=== PATIENT | male | born 1980 | race African-American/Black ===

== ENCOUNTER 2018-09-18 00:20 | Inpatient (IN) | payer MEDICAID ==
[~2018-09-18] VITALS: Ht 180.3 cm; Wt 93.9 kg
[2018-09-18] VITALS (7 sets, daily range): BP systolic 139–166; BP diastolic 81–107
[2018-09-18] MEDS ORDERED: SODIUM CHLORIDE 0.9% 1,000 ML IV ONE (01:15)
[2018-09-18 01:24] LABS: Basophils # (auto) 0.1 uL; Basophils % (auto) 1.2 % (0.0-2.0); Eosinophils # (auto) 0 uL; Eosinophils % (auto) 0.3 % (0.0-7.0); Hemoglobin 16.8 g/dL (13.5-17.5); Lymphocytes # (auto) 5.8 uL; Lymphocytes % (auto) 53.3 % (10.0-50.0); Mean Corpuscular Hemoglobin 31.3 pg (28.0-32.0); Mean Corpuscular Hgb Conc. 34.3 g/dL (32.0-36.0); Mean Corpuscular Volume 91.2 fL (80.0-100.0); Monocytes # (auto) 0.7 uL; Monocytes % (auto) 6.1 % (0.0-12.0); Neutrophils # (auto) 4.3 uL; Neutrophils % (auto) 39.1 % (37.0-80.0); Nucleated Red Blood Cells % 0.3 %; Platelet Count (auto) 303 10^3/uL (140-450); Red Blood Cells 5.37 10^6/uL (4.5-5.90); Red Cell Distribution Width 13.4 % (11.8-14.3); White Blood Cell 10.9 10^3/uL (4.4-10.8)
[2018-09-18 02:00] LABS: Alanine Aminotransferase 34 U/L (16-61); Albumin 3.9 g/dL (3.4-5.0); Anion Gap 18 (5-15); Aspartate Aminotransferase 32 U/L (15-37); BUN/Creatinine Ratio 9.4; Blood Urea Nitrogen 13 mg/dL (7-18); Calcium 8.7 mg/dL (8.5-10.1); Carbon Dioxide 20 mmol/L (21-32); Chloride 95 mmol/L (98-107); GFR African American 74 mL/min; GFR Non-African American 61 mL/min; Glucose 151 mg/dL (74-106); Magnesium 1.5 mg/dL (1.6-2.6); Sodium 133 mmol/L (136-145)
[2018-09-18 02:02] LABS: Potassium 2.8 mmol/L (3.5-5.1)
[2018-09-18 02:03] LABS: Alkaline Phosphatase 74 U/L (45-117); Bilirubin, Total 0.6 mg/dL (0.2-1.0); Total Protein 7.6 g/dL (6.4-8.2)
[2018-09-18] MEDS ORDERED: POTASSIUM EFFERVESENT TAB 25 MEQ PO ONE (02:15)
[2018-09-18 03:32] LABS: Urine Bacteria NONE SEEN /hpf (None Seen); Urine Blood Negative /uL (Negative); Urine Specific Gravity 1.007 (1.001-1.035); Urine WBC 2 /hpf (0 - 3)
[2018-09-18 03:50] LABS: Alcohol, Urine < 3.0 mg/dL (0-5); Amphetamine Screen, Urine NEGATIVE (NEGATIVE); Barbiturate Scree,Urine NEGATIVE (NEGATIVE); Benzodiazephine Screen, Urine NEGATIVE (NEGATIVE); Cannabinoid Screen, Urine NEGATIVE (NEGATIVE); Cocaine Screen, Urine NEGATIVE (NEGATIVE); Opiate Scree,Urine NEGATIVE (NEGATIVE); Phencyclidine Screen, Urine NEGATIVE (NEGATIVE)
[2018-09-18] MEDS ORDERED: MORPHINE SULFATE 4 MG/ML SYR/VIAL IV PRN (04:45)
[2018-09-18] MEDS ORDERED: TEMAZEPAM 15 MG CAP PO PRN (04:45)
[2018-09-18] MEDS ORDERED: SODIUM CHLORIDE 0.9% 500 ML IV ONE (04:45)
[2018-09-18] MEDS ORDERED: DEXTROSE (50%) 50ML SYRG IV PRN (04:45)
[2018-09-18] MEDS ORDERED: ACETAMINOPHEN 325 MG TAB PO PRN (04:45)
[2018-09-18] MEDS ORDERED: NITROGLYCERIN 0.4 MG SL TAB SL PRN (04:45)
[2018-09-18] MEDS ORDERED: ONDANSETRON HCL 4 MG/2 ML VIAL IV PRN (04:45)
[2018-09-18] MEDS ORDERED: ALBUTEROL SULF 2.5 MG/0.5ML(0.5%) NEB SOLN NEB PRN (06:15)
[2018-09-18] MEDS ORDERED: INSLISPI SC (07:18)
[2018-09-18] MEDS ORDERED: INSLANTI SC (07:19)
[2018-09-18] MEDS ORDERED: ATOR20TA50 PO (07:19)
[2018-09-18] MEDS ORDERED: ENAL2.5T PO (07:19)
[2018-09-18 07:39] LABS: Albumin 3.2 g/dL (3.4-5.0); Calcium 7.8 mg/dL (8.5-10.1); Potassium 4.2 mmol/L (3.5-5.1)
[2018-09-18 07:44] LABS: BUN/Creatinine Ratio 9.6; Bilirubin, Total 0.7 mg/dL (0.2-1.0); Total Protein 6.3 g/dL (6.4-8.2)
[2018-09-18] MEDS: ACCU-CHEK COMFORT CURVE STRIP VI SCH ×4 (08:30→22:00)
[2018-09-18] MEDS: InsuLIN REG 1unit/0.01ml Soln (100units/ml) SC SCH ×4 (08:30→23:12)
[2018-09-18] MEDS: FAMOTIDINE 20 MG TAB PO SCH ×2 (09:59→21:46)
[2018-09-18] MEDS: SODIUM CHLORIDE 0.9% 1,000 ML IV SCH ×2 (10:39→14:58)
[2018-09-18] MEDS ORDERED: ENALAPRIL MALEATE 10 MG TAB PO ONE (17:45)
[2018-09-18] MEDS: ENALAPRILAT 1.25 MG/ML-1ML VIAL IV PRN (17:45)
[2018-09-18] MEDS ORDERED: INSULIN LANTUS (GLARGINE) 1 /0.01ml (100units/ml) SC SCH (22:00)
[2018-09-19] MEDS: SODIUM CHLORIDE 0.9% 1,000 ML IV SCH ×2 (00:45→10:45)
[2018-09-19 05:00] VITALS: BP 160/102
[2018-09-19] MEDS: ACCU-CHEK COMFORT CURVE STRIP VI SCH ×2 (06:36→11:30)
[2018-09-19] MEDS: ENALAPRILAT 1.25 MG/ML-1ML VIAL IV PRN (06:38)
[2018-09-19] MEDS: InsuLIN REG 1unit/0.01ml Soln (100units/ml) SC SCH (06:38)
[2018-09-19 07:14] LABS: Basophils # (auto) 0 uL; Basophils % (auto) 0.4 % (0.0-2.0); Eosinophils # (auto) 0 uL; Eosinophils % (auto) 0.4 % (0.0-7.0); Hematocrit 45.8 % (41.0-53.0); Hemoglobin 15.5 g/dL (13.5-17.5); Lymphocytes # (auto) 2.7 uL; Lymphocytes % (auto) 43.1 % (10.0-50.0); Mean Corpuscular Hemoglobin 31.6 pg (28.0-32.0); Mean Corpuscular Hgb Conc. 33.8 g/dL (32.0-36.0); Mean Corpuscular Volume 93.4 fL (80.0-100.0); Monocytes # (auto) 0.5 uL; Monocytes % (auto) 8.3 % (0.0-12.0); Neutrophils % (auto) 47.8 % (37.0-80.0); Nucleated Red Blood Cells % 0.1 %; Platelet Count (auto) 251 10^3/uL (140-450); Red Blood Cells 4.91 10^6/uL (4.5-5.90); Red Cell Distribution Width 13.6 % (11.8-14.3); White Blood Cell 6.2 10^3/uL (4.4-10.8)
[2018-09-19 07:26] LABS: Albumin 3.3 g/dL (3.4-5.0); BUN/Creatinine Ratio 9.6; Calcium 7.9 mg/dL (8.5-10.1); Potassium 3.3 mmol/L (3.5-5.1)
[2018-09-19 07:29] LABS: Bilirubin, Total 0.8 mg/dL (0.2-1.0); Total Protein 6.8 g/dL (6.4-8.2)
[2018-09-19] MEDS: HYDROcodone-ACET 5/325MG TAB PO PRN ×2 (08:10→13:42)
[2018-09-19] MEDS: FAMOTIDINE 20 MG TAB PO SCH (08:28)
[2018-09-19 08:55] VITALS: BP 142/101
[2018-09-19] MEDS ORDERED: ENALAPRIL MALEATE 10 MG TAB PO SCH (10:00)
[2018-09-19 12:21] VITALS: BP 148/101
[2018-09-19] MEDS ORDERED: DEXTROSE (50%) 50ML SYRG IV PRN (13:15)
[2018-09-19] MEDS ORDERED: INSULIN LANTUS (GLARGINE) 1 /0.01ml (100units/ml) SC ONE (13:15)
[2018-09-19] MEDS ORDERED: amLODIPine BESYLATE 5 MG TAB PO ONE (13:15)
[2018-09-19] MEDS ORDERED: AMLO5TAB13 PO (13:34)
[2018-09-19] MEDS ORDERED: POTASSIUM CHL 20 Meq TABLET PO ONE (13:45)
[2018-09-19] MEDS ORDERED: ACCU-CHEK COMFORT CURVE STRIP VI SCH (17:00)
[2018-09-19] MEDS ORDERED: InsuLIN REG 1unit/0.01ml Soln (100units/ml) SC SCH ×2 (17:00→22:00)
== END 2018-09-19 17:47 | disposition home or self-care (01) | DRG 420 ==
LOC: ER 00:20 → TELE 00:21 → TELE-EAST 05:52
PROVIDERS: ADMIT Nurse Practitioner; ATTEND Internal Medicine Pulmonary Disease
DX: E10.10 Type 1 diabetes mellitus with ketoacidosis without coma (principal); N17.0 Acute kidney failure with tubular necrosis; E87.3 Alkalosis; I11.9 Hypertensive heart disease without heart failure; E87.6 Hypokalemia; R06.03 Acute respiratory distress; E44.1 Mild protein-calorie malnutrition; E87.5 Hyperkalemia; E86.0 Dehydration; Z79.4 Long term (current) use of insulin; Z68.28 Body mass index [BMI] 28.0-28.9, adult
CPT/HCPCS: 36415; 36600; 71045; 80053; 80307; 81001; 82010; 82805; 82962; 83036; 83735; 83880; 84484; 85025; 85379; 85610; 85730; 94060; 96360; 96361; G0378; J1815

== ENCOUNTER 2018-12-07 05:16 | Emergency (ER) | payer MEDICAID ==
[~2018-12-07] VITALS: Ht 182.9 cm; Wt 93.0 kg
[~2018-12-07 05:16] MED LIST: AMLO5TAB13 PO; ATOR20TA50 PO; ENAL2.5T PO; INSLANTI SC; INSLISPI SC
[2018-12-07 06:07] LABS: Urine Bacteria NONE SEEN /hpf (None Seen); Urine Blood Negative /uL (Negative); Urine Specific Gravity 1.021 (1.001-1.035); Urine WBC 202 /hpf (0 - 3); Urine WBC Clumps PRESENT /hpf (None Seen)
[2018-12-07 06:09] LABS: Basophils # (auto) 0.1 uL; Basophils % (auto) 0.7 % (0.0-2.0); Eosinophils # (auto) 0.1 uL; Eosinophils % (auto) 0.8 % (0.0-7.0); Hematocrit 45.8 % (41.0-53.0); Hemoglobin 15.5 g/dL (13.5-17.5); Lymphocytes # (auto) 2.6 uL; Lymphocytes % (auto) 33.6 % (10.0-50.0); Mean Corpuscular Hemoglobin 31.7 pg (28.0-32.0); Mean Corpuscular Hgb Conc. 33.9 g/dL (32.0-36.0); Mean Corpuscular Volume 93.5 fL (80.0-100.0); Monocytes # (auto) 0.5 uL; Monocytes % (auto) 6.5 % (0.0-12.0); Neutrophils # (auto) 4.5 uL; Neutrophils % (auto) 58.4 % (37.0-80.0); Nucleated Red Blood Cells % 0.1 %; Platelet Count (auto) 276 10^3/uL (140-450); Red Blood Cells 4.89 10^6/uL (4.5-5.90); Red Cell Distribution Width 13.3 % (11.8-14.3); White Blood Cell 7.8 10^3/uL (4.4-10.8)
[2018-12-07 06:25] LABS: Alanine Aminotransferase 33 U/L (16-61); Albumin 3.6 g/dL (3.4-5.0); Amylase 51 U/L (25-115); Anion Gap 16 (5-15); Aspartate Aminotransferase 34 U/L (15-37); BUN/Creatinine Ratio 15.7; Blood Urea Nitrogen 16 mg/dL (7-18); Calcium 8.9 mg/dL (8.5-10.1); Carbon Dioxide 21 mmol/L (21-32); Chloride 95 mmol/L (98-107); GFR African American > 60 mL/min; GFR Non-African American > 60 mL/min; Glucose 344 mg/dL (74-106); Lipase 197 U/L (73-393); Potassium 4.1 mmol/L (3.5-5.1); Sodium 132 mmol/L (136-145)
[2018-12-07 06:28] LABS: Alkaline Phosphatase 82 U/L (45-117); Bilirubin, Total 0.4 mg/dL (0.2-1.0); Total Protein 7.7 g/dL (6.4-8.2)
[2018-12-07] MEDS ORDERED: SODIUM CHLORIDE 0.9% 1,000 ML IV ONE (06:30)
[2018-12-07] MEDS ORDERED: cefTRIAXone 1GM/50ML D5W 50 ML IV ONE (06:30)
[2018-12-07] MEDS ORDERED: KETOROLAC TROMETH 30 MG/ML 1ML VIAL IV ONE (06:30)
[2018-12-07 08:02] VITALS: BP 145/101
== END 2018-12-07 08:35 | disposition home or self-care (01) ==
LOC: ER 05:17
DX: N39.0 Urinary tract infection, site not specified (principal); E11.65 Type 2 diabetes mellitus with hyperglycemia; E78.5 Hyperlipidemia, unspecified; I10 Essential (primary) hypertension; M10.9 Gout, unspecified; Z79.4 Long term (current) use of insulin
CPT/HCPCS: 36415; 74176; 80053; 81001; 82150; 82962; 83690; 85025; 94761; 96365; 96375; 99284; J0696; J1885; J7030

== ENCOUNTER 2019-07-13 11:28 | Emergency (ER) | payer MEDICAID ==
[~2019-07-13] VITALS: Ht 182.9 cm; Wt 88.5 kg
[~2019-07-13 11:28] MED LIST changes: -AMLO5TAB13 PO; +AMLO5TAB15 PO
[2019-07-13 11:44] VITALS: BP 132/83
[2019-07-13] MEDS ORDERED: IBUPROFEN 800 MG TAB PO ONE (11:45)
[2019-07-13] MEDS ORDERED: TETANUS-DIPTH-ACEL PERTUSSIS 0.5ML SYRG IM ONE (14:00)
== END 2019-07-13 14:27 | disposition home or self-care (01) ==
LOC: ER 11:30
DX: S91.332A Puncture wound without foreign body, left foot, initial encounter (principal); E11.9 Type 2 diabetes mellitus without complications; M10.9 Gout, unspecified; E78.5 Hyperlipidemia, unspecified; I10 Essential (primary) hypertension; Z79.4 Long term (current) use of insulin; Z79.899 Other long term (current) drug therapy; W22.8XXA Striking against or struck by other objects, initial encounter; Y93.89 Activity, other specified; Y99.8 Other external cause status; Y92.89 Other specified places as the place of occurrence of the external cause
CPT/HCPCS: 90471; 90715

== ENCOUNTER 2019-09-27 07:39 | Emergency (ER) | payer MEDICAID ==
[~2019-09-27] VITALS: Ht 182.9 cm; Wt 84.4 kg
[2019-09-27 07:54] VITALS: BP 146/71
[2019-09-27] MEDS ORDERED: ACETAMINOPHEN 325 MG TAB PO ONE (09:15)
== END 2019-09-27 09:43 | disposition home or self-care (01) ==
LOC: ER 07:41
DX: J06.9 Acute upper respiratory infection, unspecified (principal); R42 Dizziness and giddiness; E11.9 Type 2 diabetes mellitus without complications; E78.00 Pure hypercholesterolemia, unspecified; I10 Essential (primary) hypertension
CPT/HCPCS: 71046

== ENCOUNTER 2021-02-09 06:55 | Emergency (ER) | payer MEDICAID ==
[~2021-02-09] VITALS: Ht 182.9 cm; Wt 89.8 kg
[~2021-02-09 06:55] MED LIST changes: +AMLO-489 PO; -AMLO5TAB15 PO; -ENAL2.5T PO; +ENAL2.5T7 PO
[2021-02-09 08:02] LABS: Basophils # (auto) 0 10 ^3/uL (0-0.2); Basophils % (auto) 0.5 % (0.0-2.0); Eosinophils # (auto) 0 10 ^3/uL (0-0.8); Eosinophils % (auto) 0.8 % (0.0-7.0); Hemoglobin 13.6 g/dL (13.5-17.5); Lymphocytes # (auto) 2.1 10 ^3/uL (0.4-5.4); Lymphocytes % (auto) 43.3 % (10.0-50.0); Mean Corpuscular Hemoglobin 29.9 pg (28.0-32.0); Mean Corpuscular Volume 87.9 fL (80.0-100.0); Monocytes # (auto) 0.4 10 ^3/uL (0-1.3); Neutrophils # (auto) 2.3 10 ^3/uL (1.6-8.6); Neutrophils % (auto) 46.4 % (37.0-80.0); Nucleated Red Blood Cells % 0.1 %; Platelet Count (auto) 298 10^3/uL (140-450); Red Blood Cells 4.55 10^6/uL (4.5-5.90); White Blood Cell 4.9 10^3/uL (4.4-10.8)
[2021-02-09 08:16] LABS: Alanine Aminotransferase 37 U/L (16-61); Albumin 3.5 g/dL (3.4-5.0); Anion Gap 7 (5-15); Aspartate Aminotransferase 43 U/L (15-37); BUN/Creatinine Ratio 18.2; Blood Urea Nitrogen 14 mg/dL (7-18); Calcium 8.2 mg/dL (8.5-10.1); Carbon Dioxide 29 mmol/L (21-32); Chloride 104 mmol/L (98-107); GFR African American 145 mL/min; GFR Non-African American 120 mL/min; Glucose 91 mg/dL (74-106); Potassium 3.8 mmol/L (3.5-5.1); Sodium 140 mmol/L (136-145)
[2021-02-09 08:21] LABS: Alkaline Phosphatase 57 U/L (45-117); Bilirubin, Total 0.5 mg/dL (0.2-1.0); Total Protein 6.6 g/dL (6.4-8.2)
[2021-02-09] MEDS ORDERED: SODIUM CHLORIDE 0.9% 1,000 ML IV ONE ×2 (08:45)
[2021-02-09 09:56] LABS: Urine Bacteria NONE SEEN /hpf (None Seen); Urine Blood Negative /uL (Negative); Urine Mucus FEW (None Seen); Urine Specific Gravity 1.027 (1.001-1.035); Urine WBC 3 /hpf (0 - 3)
[2021-02-09 10:14] LABS: Alcohol, Urine < 3.0 mg/dL (0-10); Amphetamine Screen, Urine NEGATIVE (NEGATIVE); Barbiturate Scree,Urine NEGATIVE (NEGATIVE); Benzodiazephine Screen, Urine NEGATIVE (NEGATIVE); Cannabinoid Screen, Urine POSITIVE (NEGATIVE); Cocaine Screen, Urine NEGATIVE (NEGATIVE); Opiate Scree,Urine NEGATIVE (NEGATIVE); Phencyclidine Screen, Urine NEGATIVE (NEGATIVE)
[2021-02-09 11:05] VITALS: BP 135/81
== END 2021-02-09 11:04 | disposition home or self-care (01) ==
LOC: ER 06:55
DX: R42 Dizziness and giddiness (principal); F12.10 Cannabis abuse, uncomplicated; E78.5 Hyperlipidemia, unspecified; I10 Essential (primary) hypertension; E10.9 Type 1 diabetes mellitus without complications
CPT/HCPCS: 36415; 70450; 80053; 80307; 81001; 84484; 85025; 93005; 96360; 99285; J7030

== ENCOUNTER 2021-11-26 05:33 | Emergency (ER) | payer MEDICAID ==
[~2021-11-26] VITALS: Ht 182.9 cm; Wt 95.3 kg
[2021-11-26 08:59] VITALS: BP 146/96
== END 2021-11-26 10:29 | disposition home or self-care (01) ==
LOC: ER 05:33
DX: F41.0 Panic disorder [episodic paroxysmal anxiety] (principal); Z20.822 Contact with and (suspected) exposure to COVID-19
CPT/HCPCS: 36415; 71045; 87426

== ENCOUNTER 2021-12-24 14:30 | Emergency (ER) | payer MEDICAID ==
[~2021-12-24] VITALS: Ht 182.9 cm; Wt 97.5 kg
[2021-12-24 15:43] LABS: Basophils # (auto) 0 10 ^3/uL (0-0.2); Basophils % (auto) 0.4 % (0.0-2.0); Eosinophils # (auto) 0 10 ^3/uL (0-0.8); Eosinophils % (auto) 0.5 % (0.0-7.0); Hematocrit 42.4 % (41.0-53.0); Hemoglobin 14.9 g/dL (13.5-17.5); Lymphocytes # (auto) 2.8 10 ^3/uL (0.4-5.4); Lymphocytes % (auto) 33.7 % (10.0-50.0); Mean Corpuscular Hemoglobin 31.5 pg (28.0-32.0); Mean Corpuscular Hgb Conc. 35.2 g/dL (32.0-36.0); Mean Corpuscular Volume 89.5 fL (80.0-100.0); Monocytes # (auto) 0.7 10 ^3/uL (0-1.3); Monocytes % (auto) 8.6 % (0.0-12.0); Neutrophils # (auto) 4.8 10 ^3/uL (1.6-8.6); Neutrophils % (auto) 56.8 % (37.0-80.0); Nucleated Red Blood Cells % 0.2 %; Red Blood Cells 4.74 10^6/uL (4.5-5.90); Red Cell Distribution Width 13.3 % (11.8-14.3); White Blood Cell 8.4 10^3/uL (4.4-10.8)
[2021-12-24 16:03] LABS: Albumin 3.7 g/dL (3.4-5.0); Calcium 8.7 mg/dL (8.5-10.1); Potassium 4.3 mmol/L (3.5-5.1)
[2021-12-24 16:10] LABS: BUN/Creatinine Ratio 14.3; Bilirubin, Total 0.4 mg/dL (0.2-1.0); Total Protein 7.4 g/dL (6.4-8.2)
[2021-12-24 16:57] VITALS: BP 167/88
[2021-12-24 18:08] LABS: Urine Bacteria NONE SEEN /hpf (None Seen); Urine Blood Negative /uL (Negative); Urine Mucus FEW (None Seen); Urine Specific Gravity 1.024 (1.001-1.035); Urine WBC 1 /hpf (0 - 3)
== END 2021-12-24 17:11 | disposition home or self-care (01) ==
LOC: ER 14:30
DX: F41.9 Anxiety disorder, unspecified (principal); E11.9 Type 2 diabetes mellitus without complications; E78.5 Hyperlipidemia, unspecified; I10 Essential (primary) hypertension
CPT/HCPCS: 36415; 71250; 80053; 81001; 84484; 85025

== ENCOUNTER 2023-09-20 14:58 | Emergency (ER) | payer MEDICAID ==
[~2023-09-20] VITALS: Ht 182.9 cm; Wt 101.1 kg
[~2023-09-20 14:58] MED LIST changes: -AMLO-489 PO; +AMLO1TAB22 PO; +ENAL1TAB42 PO; -ENAL2.5T7 PO
[2023-09-20] MEDS ORDERED: KETOROLAC TROMETH 60MG/2ML VIAL IM ONE (18:45)
[2023-09-20] MEDS ORDERED: NAP500T PO (18:59)
[2023-09-20 19:00] VITALS: BP 134/82; PULSE 88; RESP 17; TEMP 98; O2SAT 97
== END 2023-09-20 19:19 | disposition home or self-care (01) ==
LOC: ER 14:58
DX: M79.10 Myalgia, unspecified site (principal); I10 Essential (primary) hypertension; E11.9 Type 2 diabetes mellitus without complications; M10.9 Gout, unspecified; F41.9 Anxiety disorder, unspecified; E78.5 Hyperlipidemia, unspecified; Z79.4 Long term (current) use of insulin; Z79.899 Other long term (current) drug therapy
CPT/HCPCS: 96372; 99283; J1885

== ENCOUNTER 2025-03-15 16:04 | Emergency (ER) | payer MEDICAID ==
[~2025-03-15] VITALS: Ht 182.9 cm; Wt 106.8 kg
[~2025-03-15 16:04] MED LIST changes: +NAP500T PO
[2025-03-15 17:14] VITALS: BP 149/106; PULSE 100; RESP 17; TEMP 99.4; O2SAT 96
--- NOTE | 2025-03-15 17:21 | DVH ---
XY L SHOULDER 2+ VIEW XRAY March 15, 2025 INDICATION: r/o fx TECHNICAL DATA: 3 views were obtained of the left shoulder. COMPARISON: None FINDINGS: There are no fractures or dislocations. The acromioclavicular joint is borderline for separation. 9.3 mm IMPRESSION: 1. Possible separation of the left acromioclavicular joint.
--- NOTE | 2025-03-15 17:32 | ED.PDOC ---
Musculoskeletal HPI Comments 45 year male w/ no pertinent hx presents for a possible dislocated left shoulder. Injury occurred at work while turning a crank handle. No other trauma reported Onset was sudden Pain to anterior shoulder Denies fevers chills night sweats nausea vomiting redness around the shoulder Denies previous surgeries to the shoulder or significant injury Numbness/tingling down the arm Denies changes, shortness of breath Chief Complaint: Upper Extremity Time Seen by MD: 16:26 Primary Care Provider: tammy Raya Notes: Nurses Notes, Medications, Allergies Allergies: Coded Allergies: NO KNOWN ALLERGIES (Unverified , 04/24/15) Home Meds Active Scripts Naproxen (NAPROSYN TABLET) 500 Mg Tb, 1 TAB PO BID, #30 TAB 1 Refill Prov:BEBETO AMAYA DO 09/20/23 Amlodipine Besylate (Amlodipine Besylate) 5 Mg Tab, 1 TAB PO DAILY, #90 TAB 0 Refills Prov:STEPHANY ART MD 09/19/18 Reported Medications Atorvastatin Calcium (ATORVASTATIN CALCIUM) 20 Mg Tab, 1 TAB PO DAILY, #30 TAB 5 Refills 09/18/18 Enalapril Maleate (Enalapril Maleate) 2.5 Mg Tab, 10 MG PO DAILY for 30 Days, MG 09/18/18 Insulin Glargine (Lantus) 100 Unit/Ml Inj, 40 UNIT SC DAILY, INJ 09/18/18 Insulin Lispro (Human) (Humalog) 100 Unit/Ml Inj, 30 UNIT SC DAILY, INJ 09/18/18 Information Source: Patient Mode of Arrival: Ambulatory Past Medical History PAST MEDICAL HISTORY: Anxiety, DM, Gout, High Lipids, HTN Surgical History: Denies all surgeries Family History Family History: Unknown Social History Smoker: Non-Smoker Alcohol: Occasionally Drugs: Denies Drug Use Lives In: Home All Other Systems: Reviewed and Negative (per hpi) Physical Exam General Appearance: No Apparent Distress, Normal HEENT: Normal ENT Inspection, Pharynx Normal, TMs Normal Neck: Full Range of Motion, Non-Tender, Normal, Normal Inspection Respiratory: Chest Non-Tender, Lungs Clear, No Accessory Muscle Use, No Respiratory Distress, Normal Breath Sounds Cardiovascular: No Murmur, No Gallop, Regular Rate/Rhythm Breast Exam: Deferred Gastrointestinal: No Organomegaly, Non Tender, No Pulsatile Mass, Normal Bowel Sounds, Soft Genitalia: Deferred Pelvic: Deferred Rectal: Deferred Extremities: No calf tenderness, Normal capillary refill, Normal inspection, Normal range of motion, Non-tender, No pedal edema Musculoskeletal : Location: Left Extremity Location: Shoulder ( No gross abnormality on inspection. No shoulder drop visible. No clavicular tenderness on palpation. Palpation tenderness to coracoid process and acromion process. No scapular, supraspinatus, infraspinatus tenderness to touch. Limited flexion passive movement due to pain. Pain with abduction. 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 Was a procedure done?: No Differential Diagnosis EXT Differential Diagnosis: Fracture, Sprain, Dislocation X-Ray, Labs, Meds, VS Vital Signs Date Time Temp Pulse Resp B/P (MAP) Pulse Ox O2 Delivery O2 Flow Rate FiO2 03/15/25 17:14 100 17 96 Room Air 03/15/25 17:14 99.4 100 17 149/106 (120) 96 99.4 03/15/25 16:21 99.4 100 17 149/106 (120) 96 99.4 Current Medications Medications (Trade) Dose Ordered Sig/Sandra Route Start Time Stop Time Status Last Admin Acetaminophen/ Hydrocodone Bitart ([place] 7.5/325MG Tab) 1 tab ONCE ONCE PO 03/15/25 17:45 03/15/25 17:48 DC 03/15/25 18:05 Ibuprofen (Motrin Tablet) 600 mg ONCE ONCE PO 03/15/25 17:45 03/15/25 17:48 DC 03/15/25 18:05 PATIENT: HUSSAIN CHOCCT: [id number]: [id number] : 1980 LOC: ER ROOM / BED: / AGE / SEX: 45 / M ADM STATUS: REG ER SERVICE 1616 ORDERING PHYSICIAN: GERSON JERRY NP PROCEDURE(s): LSHD2 - L SHOULDER 2+ VIEW XRAY REASON: r/o fx ORDER NUMBER(s): [id number], ACCESSION NUMBER(s): [id number] XY L SHOULDER 2+ VIEW XRAY March 15, 2025 INDICATION: r/o fx TECHNICAL DATA: 3 views were obtained of the left shoulder. COMPARISON: None FINDINGS: There are no fractures or dislocations. The acromioclavicular joint is borderline for separation. 9.3 mm IMPRESSION: 1. Possible separation of the left acromioclavicular joint. ATED BY: BARRERA WASHINGTON MD DICTATED DATE/TIME: 03/15/251718 SIGNED BY: BARRERA WASHINGTON MD SIGNED DATE/TIME: 03/15/251718 CC: X-Ray, Labs, Meds, VS Comment After ROS physical examination no red flags. Imaging was ordered and shoulder x- ray shows: Possible separation of the left acromioclavicular joint. Ordered CT for confirmation pending report Time of 1ST Reevaluation: 17:31 Reevaluation 1ST: Unchanged Time of 2ND Reevaluation: 18:02 Reevaluation 2ND: Improved Patient Education/Counseling: Diagnosis, Treatment Family Education/Counseling: Diagnosis, Treatment Departure 1 Departure Time of Disposition: 18:09 Impression: Primary Impression: AC separation Qualified Codes: S43.102A - Unspecified dislocation of left acr omioclavicular joint, initial encounter Disposition: 01 HOME / SELF CARE / HOMELESS Condition: Fair Critical Care Note Critical Care Time?: No Stability Stability form required: No Heart Score Heart Score: Heart Score Response (Comments) Value History N/A 0 EKG N/A 0 Age N/A 0 Risk Factors N/A 0 Troponin N/A 0 Total 0 GERSON JERRY HEAD BANQUET WAITER/WAITRESS Mar 15, 2025 17:32
[2025-03-15] MEDS: IBUPROFEN 600 MG TAB PO ONE (18:05)
[2025-03-15] MEDS: HYDROcodone-ACET 7.5/325MG TAB PO ONE (18:05)
[2025-03-15] MEDS ORDERED: IBUP1TAB5 PO (18:13)
== END 2025-03-15 18:14 | disposition home or self-care (01) ==
LOC: ER 16:04
DX: S43.102A Unspecified dislocation of left acromioclavicular joint, initial encounter (principal); F41.9 Anxiety disorder, unspecified; I10 Essential (primary) hypertension; E78.5 Hyperlipidemia, unspecified; E11.9 Type 2 diabetes mellitus without complications; Z79.899 Other long term (current) drug therapy; X58.XXXA Exposure to other specified factors, initial encounter; Y93.89 Activity, other specified; Y92.89 Other specified places as the place of occurrence of the external cause; Y99.0 Civilian activity done for income or pay
CPT/HCPCS: 73030